=== PATIENT | female | born 1990 | race American Indian/Alaskan Native ===

== ENCOUNTER 2021-12-18 20:37 | Emergency (ER) | payer SELFPAY ==
[2021-12-18] MEDS ORDERED: SODIUM CHLORIDE 0.9% 1000 ML 1,000 ML IV ONE ×2 (21:47→21:57)
[2021-12-18] MEDS ORDERED: MORPHINE 4 MG/1 ML INJ IV ONE (21:57)
[2021-12-18] MEDS ORDERED: ONDANSETRON 4 MG/2 ML INJ IV ONE (21:57)
--- NOTE | 2021-12-18 22:05 | Emergency Department Report ---
HPI - General Chief Complaint: Vaginal Bleeding PUI?: No Time Seen by Provider: 12/18/21 21:45 - HPI HPI: 31yo obese F, G1PO, LMP unknown per pt's report, presents for evaluation of abdominal pain and vaginal bleeding. Patient states she does not know her last menstrual cycle but she reports "I was and the baby came out and I had a miscarriage a few days ago and I think it was on December 14 or but I do not know." She states "I flushed the baby down the toilet." Patient states she never sought medical treatment but is having persistently worsening lower abdominal pain and vaginal bleeding today. She reports vomiting. No vomiting fevers or chills. She reports feeling lightheaded. Patient states she does not have an neighborhood planner. Pain currently 10 out of 10. ED Past Medical Hx - Past Medical History Previous Medical History?: No Additional medical history: Obesity - Surgical History Past Surgical History?: No - Social History Smoking Status: Never Smoker Substance Use Type: None - Medications Home Medications: Home Medications Medication Instructions Recorded Confirmed Last Taken Type Acetaminophen [Acetaminophen ER 650 mg PO Q6HR PRN 7 Days #28 12/19/21 Unknown Rx TAB] Ibuprofen [Motrin 800 MG tab] 800 mg PO Q8HR PRN 7 Days #21 12/19/21 Unknown Rx tablet Ondansetron [Zofran Odt] 4 mg PO Q8HR 3 Days #12 tab.rapdis 12/19/21 Unknown Rx Sulfamethoxazole/Trimethoprim 1 each PO BID #14 12/19/21 Unknown Rx [Bactrim DS TAB] traMADoL [Ultram 50 MG tab] 50 mg PO Q6HR PRN 1 Days #4 tablet 12/19/21 Unknown Rx ED Review of Systems ROS: Stated complaint: WEAKNESS/ABDOMINAL PAIN Other details as noted in HPI Comment: All other systems reviewed and negative Gastrointestinal: abdominal pain, nausea. denies: vomiting, diarrhea, co nstipation, hematemesis, melena, hematochezia Genitourinary: hematuria, other (Vaginal bleeding). denies: urgency, dysuria, frequency, discharge Musculoskeletal: back pain, joint swelling, arthralgia Skin: denies: rash, lesions, change in color, change in hair/nails, pruritus Neurological: as per HPI Physical Exam - Physical Exam Vital Signs: Vital Signs 12/18/21 20:38 Temperature 98.2 F Pulse Rate 120 H Respiratory 18 Rate Blood Pressure 139/90 O2 Sat by Pulse 98 Oximetry General: Gen: pt is well appearing, no acute distress; pt wearing sweatpants which are coverdin dried blood HEENT: Normocephalic atraumatic pupils equally round and reactive to light extraocular muscles intact sclera anicteric Neck: Full range of motion, no midline spinal tenderness palpation, no JVD, no carotid bruits, no nuchal rigidity CVS: S1-S2 regular rate and rhythm with no gallops rubs or murmurs, chest wall nontender Pulmonary: Clear to auscultation bilaterally, no wheezes rales or rhonchi Abdomen: Soft nondistended nontender no guarding or rebound tenderness, no palpable deformities or step-offs, normal active bowel sounds, no hepatosplenomegaly, no pulsatile masses; p : Deferred (pt refuses) Extremities: No cyanosis no clubbing no edema, intact distal peripheral pulses, Integumentary: Skin normal, no petechia no purpura no abscess no lacerations no evidence of trauma no evidence of infection Neuro: Patient is awake alert and oriented to person place time situation, mentating well, cranial nerves II through XII intact, no focal neurodeficits, sensation grossly tact Psych: Calm cooperative, mood affect normal ED Course Vital Signs 12/18/21 20:38 Temperature 98.2 F Pulse Rate 120 H Respiratory 18 Rate Blood Pressure 139/90 O2 Sat by Pulse 98 Oximetry - Reevaluation(s) Reevaluation #1: 12/19/21 01:01 pt appears comfortable; denies any worsening bleeding; labs, ultrasound results, and discussion with Dr. Cleaning (solvent station attendant yarn dry room worker) discussed at length with the pt. Plan will be to administer additional analgesics and repeat cbc. Pt verbalized understanding and agreement. Reevaluation #2: 12/19/21 05:01 Patient is comfortable and well-appearing. She is looking at a personal cellular telephone and lying in bed. She denies any worsening vaginal bleeding or any other new or evolving symptoms. Plan of care to discharge and for the patient's necessity to immediately follow-up with a [employer] STILL OPERATOR as soon as possible were discussed at length with the patient. - Consultations Consultation #1: 12/19/21 12:56am: Case reviewed via telephone with on-call neighborhood planner and asphalt roller person, Dr. Saint Christine. Per her verbal report, no further emergent gynecological intervention warranted at this time. Patient should expect continued bleeding and cramping but no specific recommendations exist at this time to cause complete resolution of the patient's bleeding. She advises the patient follow- up closely with her asphalt roller person for reassessment in the setting for spontaneous miscarriage. Consultation #2: 12/19/21 04:52 I telephoned the solvent station attendant asphalt roller person to discuss the repeat 3rd cbc, and to obtain advisement concerning the pt's final disposition. I received a return call from Dr. Lugo. The case was reviewed with her. She verbalizes that the pt's hb/hct have not significantly decreased to the extent of requiring transfusion of packed red blood cells or further emergent work-up or intervention by obstetrics or gynecology. She states that the patient may likely have continued bleeding but this is expected. She recommends the patient if she does not have her own asphalt roller person, be referred to see her in the office this week for reassessment. This was discussed at length with the patient. ED Medical Decision Making - Lab Data Result diagrams: 12/19/21 03:47 12/18/21 23:24 - Radiology Data Radiology results: report reviewed - Medical Decision Making 31yoF, G1PO, LMP unknown, presents with reports of having undergone a spontaneous several days ago, with c/o several days of persistently wo rsening vaginal bleeding. Vitals reviewed. Pt given NS and analgesics here. Tachycardia resolved. Labs reviewed. TVUS report reviewed. Case discussed via telephone with Dr. Cleaning, solvent station attendant asphalt roller person and neighborhood planner. See patient's electronic health record for my documented discussion with her. Case was also subsequently reviewed again with on-call asphalt roller person, Dr. Lugo. Repeat hemoglobin hematocrit remained stable when compared to prior check during the patient's initial evaluation. No further emergent work-up warranted. Patient stable for discharge to home. Prior to discharge she was advised to follow-up with her asphalt roller person within 1-2 business days for reassessment. She was given strict verbal and written return precautions. Patient verbalized understanding and agreement plan of care. Critical Care Time: No Critical care attestation.: If time is entered above; I have spent that time in minutes in the direct care of this critically ill patient, excluding procedure time. ED Disposition Clinical Impression: Vaginal bleeding, Spontaneous , Urinary tract infection Disposition: HOME / SELF CARE / HOMELESS Is pt being admited?: No Does the pt Need Aspirin: No Condition: Stable Instructions: Miscarriage, [id number], Urinary Tract Infection, Adult Additional Instructions: Take ibuprofen as needed for any severe pain you are experiencing. Please alternate ibuprofen with high-dose acetaminophen (such as 500 mg or 650 mg of acetaminophen which itself may be taken every 4 hours), for continued pain management. If you have any breakthrough pain, you may take tramadol, as needed. Avoid any heavy straining, heavy lifting, or vaginal sexual activity until you are cleared to resume as such by your asphalt roller person. Telephone your asphalt roller person to obtain immediate follow-up appointment for reassessment. If you do not have a asphalt roller person, telephone Dr. Lugo today to schedule an immediate appointment to be seen this week. This is very important. Your workup today also reveals you have a urinary tract infection. Take one tablet of bactrim by mouth (with food), every 12 hours, for 7 days. Return to the nearest emergency department if you develop any vaginal bleeding requiring usage of greater than 1 pad or tampon per hour, lightheadedness or dizziness, loss of consciousness, any fever of 100.4 Fahrenheit or higher, or if any other new worrisome symptoms develop. Prescriptions: Acetaminophen [Acetaminophen ER TAB] 650 mg PO Q6HR PRN 7 Days #28 PRN Reason: Pain Sulfamethoxazole/Trimethoprim [Bactrim DS TAB] 1 each PO BID #14 Ibuprofen [Motrin 800 MG tab] 800 mg PO Q8HR PRN 7 Days #21 tablet PRN Reason: Pain , Severe (7-10) traMADoL [Ultram 50 MG tab] 50 mg PO Q6HR PRN 1 Days #4 tablet PRN Reason: Pain Ondansetron [Zofran Odt] 4 mg PO Q8HR 3 Days #12 tab.rapdis Referrals: GEOFF ANNE MD [Primary Care Provider] - 3-5 Days NJ LUGO MD [Staff Physician] - [facility]
[2021-12-18 22:23] LABS: Hematocrit 30.4 % (30.3-42.9); Hemoglobin 10.1 gm/dl (10.1-14.3); Mean Corpuscular HGB Conc 33 % (30-34); Mean Corpuscular Volume 88 fl (79-97); Platelet Count 380 K/mm3 (140-440); Red Blood Count 3.44 M/mm3 (3.65-5.03); Red Cell Distribution Width 13.8 % (13.2-15.2)
[2021-12-18 23:37] LABS: Anisocytosis 1+; Basophils % (Manual) 0 % (0.0-1.8); Eosinophils % (Manual) 0 % (0.0-4.3); Monocytes % (Manual) 5.5 % (0.0-7.3); Platelet Estimate Consistent w Auto; Total Cells Counted 200
[2021-12-18 23:44] LABS: Alanine Aminotransferase 65 units/L (7-56); Albumin 3.9 g/dL (3.9-5); Blood Urea Nitrogen 11 mg/dL (7-17); Calcium 9.3 mg/dL (8.4-10.2); Hemolysis Index 0
[2021-12-18 23:46] LABS: BUN/Creatinine Ratio 22
--- NOTE | 2021-12-19 00:37 | Ultrasound Report ---
US OB <= 14 weeks fetus INDICATION / CLINICAL INFORMATION: pt s/p spont ab; c/o pain,vag bleed;r/o retain POC beta hCG 23,207 COMPARISON: None available. TECHNIQUE: Using a transcutaneous probe, multiple grayscale, color Doppler, and spectral Doppler imag es of the uterus and fetus were captured and stored. FINDINGS: Uterus measures 14.9 x 6.2 x 7.6 cm. The endometrium measures 19.5 mm in thickness and has a heteroge neous pattern of echotexture. Increased blood flow is present within the endometrium. No intrauterine gestational sac, pole, or yolk sac is demonstrated. The right ovary measures 3.2 x 2.0 x 1.2 cm and appears within normal limits. The left ovary measures 2.7 x 1.4 x 1.3 cm and appears within normal limits. IMPRESSION: 1. Findings compatible with spontaneous miscarriage. Signer Name: Sharan Freeman II, MD Signed: 12/19/2021 12:33 AM Workstation Name: [id number]
[2021-12-19 00:59] LABS: Amphetamine Screen,Urine PRESUMPTIVE NEGATIVE; Benzodiazepines Screen,Urine PRESUMPTIVE NEGATIVE; Cannabinoid Screen,Urine PRESUMPTIVE NEGATIVE; Cocaine Screen,Urine PRESUMPTIVE NEGATIVE; Methadone Screen,Urine PRESUMPTIVE NEGATIVE; Opiate Screen,Urine PRESUMPTIVE POSITIVE
[2021-12-19 01:01] LABS: Bacteria,Urine 1+ /HPF (Negative)
[2021-12-19 01:08] LABS: Color,Urine Red (Yellow); RBC,Urine > 182.0 /HPF (0.0-6.0); WBC,Urine > 182.0 /HPF (0.0-6.0)
[2021-12-19] MEDS ORDERED: SULFAMETHOXAZOLE/TRIMETHOPRIM 800/160MG DS TAB PO STA (01:09)
[2021-12-19 01:33] LABS: Hematocrit 25.5 % (30.3-42.9); Hemoglobin 8.5 gm/dl (10.1-14.3); Mean Corpuscular HGB Conc 33 % (30-34); Mean Corpuscular Volume 89 fl (79-97); Platelet Count 328 K/mm3 (140-440); Red Blood Count 2.85 M/mm3 (3.65-5.03); Red Cell Distribution Width 13.5 % (13.2-15.2)
[2021-12-19 03:21] LABS: Basophils % (Manual) 0 % (0.0-1.8); Eosinophils % (Manual) 0 % (0.0-4.3); Monocytes % (Manual) 5.5 % (0.0-7.3); Total Cells Counted 200
[2021-12-19 03:22] LABS: Anisocytosis 1+; Platelet Estimate Consistent w Auto
[2021-12-19] MEDS ORDERED: SULFAMETHOXAZOLE/TRIMETHOPRIM 800/160MG DS TAB PO ONE (04:00)
[2021-12-19 04:19] LABS: Basophils % (Auto) 0.1 % (0.0-1.8); Eosinophils % (Auto) 0.2 % (0.0-4.3); Hematocrit 24.7 % (30.3-42.9); Hemoglobin 8.4 gm/dl (10.1-14.3); Lymphocytes # (Auto) 2.2 K/mm3 (1.2-5.4); Lymphocytes % (Auto) 10.9 % (13.4-35.0); Mean Corpuscular HGB Conc 34 % (30-34); Mean Corpuscular Volume 89 fl (79-97); Monocytes # (Auto) 1.4 K/mm3 (0.0-0.8); Monocytes % (Auto) 7.2 % (0.0-7.3); Platelet Count 340 K/mm3 (140-440); Red Blood Count 2.79 M/mm3 (3.65-5.03); Red Cell Distribution Width 13.8 % (13.2-15.2)
[2021-12-19] MEDS ORDERED: SODIUM CHLORIDE 0.9% 500 ML 500 ML IV ONE (04:38)
[2021-12-19 06:42] VITALS: BP 116/77
== END 2021-12-19 06:43 | disposition home or self-care (01) ==
LOC: EDBD → ED 20:37
DX: O03.9 Complete or unspecified spontaneous abortion without complication (principal); N93.9 Abnormal uterine and vaginal bleeding, unspecified; N39.0 Urinary tract infection, site not specified; Z79.899 Other long term (current) drug therapy
CPT/HCPCS: 36415; 76801; 80053; 80307; 81001; 84702; 84703; 85007; 85025; 86900; 86901; 96361; 96374; 96375; 99284; J2270; J2405; J7030; J7040; 99283